=== PATIENT | male | born 1975 | race Caucasian/White ===

== ENCOUNTER → 2021-08-02 | Day surgery (SDC) | payer OTHER ==
[~2021-08-02] VITALS: Ht 175.3 cm; Wt 90.7 kg
[~2021-08-02] MED LIST: COZAAR100 MG PO; HCTZ25 MG PO; LOSARTAN-HCTZ1 EAC1 PO; MOBIC15 MG PO; NORCO 5-325 TA1 EACH PO
== END | disposition home or self-care (01) ==
LOC: FAS 09:48
DX: Z12.11 Encounter for screening for malignant neoplasm of colon (principal); I10 Essential (primary) hypertension; E78.5 Hyperlipidemia, unspecified; E03.9 Hypothyroidism, unspecified; E66.9 Obesity, unspecified; Z68.31 Body mass index [BMI] 31.0-31.9, adult; Z79.1 Long term (current) use of non-steroidal anti-inflammatories (NSAID); Z79.899 Other long term (current) drug therapy; Z88.8 Allergy status to other drugs, medicaments and biological substances; Z90.49 Acquired absence of other specified parts of digestive tract; Z80.3 Family history of malignant neoplasm of breast; Z82.49 Family history of ischemic heart disease and other diseases of the circulatory system; Z78.9 Other specified health status
CPT/HCPCS: G0121; J2704; J7120